=== PATIENT | male | born 1990 | race Hispanic/Latino ===

== ENCOUNTER 2023-12-21 08:48 | Emergency (ER) | payer SELFPAY ==
[2023-12-21] MEDS ORDERED: Cyclobenzaprine 10 MG TAB ONE (09:30)
[2023-12-21] MEDS ORDERED: Ketorolac Tromethamine 30 MG (1 mL) VIAL ONE (09:30)
== END 2023-12-21 11:25 | disposition home or self-care (01) ==
LOC: ERS 08:48
DX: S39.012A Strain of muscle, fascia and tendon of lower back, initial encounter (principal); Z87.891 Personal history of nicotine dependence; W01.0XXA Fall on same level from slipping, tripping and stumbling without subsequent striking against object, initial encounter
CPT/HCPCS: 72100; 96372; J1885